=== PATIENT | female | born 1985 | race Caucasian/White ===

== ENCOUNTER 2019-09-22 08:29 | Emergency (ER) | payer BC, SELFPAY ==
[2019-09-22] MEDS ORDERED: ALBUTEROL 2.5 MG/3 ML NEB SOL ONE (09:06)
[2019-09-22] MEDS ORDERED: IPRATROPIUM BROM 0.5MG/2.5ML ONE (09:06)
[2019-09-22] MEDS ORDERED: predniSONE 20 MG TAB ONE (09:06)
[2019-09-22] MEDS ORDERED: BENZONATATE 100 MG CAP PO ONE (10:32)
--- NOTE | 2019-09-22 10:46 | RAD REPORT ---
EXAM DESCRIPTION: RAD - Chest Pa And Lat (2 Views) - 09/22/2019 10:05 am CLINICAL HISTORY: Cough;SOB Chest pain. COMPARISON: <Comparisons> FINDINGS: The lungs are clear. The heart is normal in size. No displaced fractures. IMPRESSION: No acute or concerning finding suspected.
--- NOTE | 2019-09-22 10:56 | EDPHYS ---
Physician Documentation [facility] Name: Jennifer Hutson Age: 34 yrs Sex: Female : 1985 Arrival Date: 09/22/2019 Time: 08:30 Bed 16 Private MD: ED Physician Maninder Mora HPI: 09/22 10:05 This 34 yrs old Female presents to ER via Ambulatory with complaints of Chest pm1 Pressure, Shortness Of Breath, Sore Throat, Headache. 10:05 The patient or guardian reports cough, with productive sputum, that is yellow. Onset: pm1 The symptoms/episode began/occurred 3 day(s) ago. Severity of symptoms: in the emergency department the symptoms are actually worse. Modifying factors: The symptoms are alleviated by nothing, the symptoms are aggravated by nothing. Associated signs and symptoms: Pertinent positives: chest pain, with cough, with breathing, sore throat, Headache, SOB, Pertinent negatives: fever. The patient has not recently seen a physician. Historical: - Allergies: 08:45 No Known Allergies; aa5 - PMHx: 08:45 Depression; aa5 - PSHx: 08:45 Cholecystectomy; Tubal ligation; aa5 - Immunization history:: Adult Immunizations up to date. - Social history:: Smoking status: Patient uses tobacco products, smokes one-half pack cigarettes per day. - Ebola Screening: : No symptoms or risks identified at this time. ROS: 10:05 Constitutional: Negative for fever, chills, and weight loss, Eyes: Negative for injury, pm1 pain, redness, and discharge. 10:05 Neck: Negative for injury, pain, and swelling. 10:05 Abdomen/GI: Negative for abdominal pain, nausea, vomiting, diarrhea, and constipation, Back: Negative for injury and pain, : Negative for injury, bleeding, discharge, and swelling, MS/Extremity: Negative for injury and deformity, Skin: Negative for injury, rash, and discoloration, Neuro: Negative for headache, weakness, numbness, tingling, and seizure. 10:05 ENT: Positive for sore throat, Negative for drainage from ear(s), ear pain, difficulty swallowing, difficulty handling secretions, hoarseness. 10:05 Cardiovascular: Positive for chest pain, with cough, Negative for edema, orthopnea, palpitations. 10:05 Respiratory: Positive for cough, with yellow sputum, shortness of breath, wheezing. Exam: 10:05 Constitutional: This is a well developed, well nourished patient who is awake, alert, pm1 and in no acute distress. Head/Face: Normocephalic, atraumatic. 10:05 Neck: Trachea midline, no thyromegaly or masses palpated, and no cervical lymphadenopathy. Supple, full range of motion without nuchal rigidity, or vertebral point tenderness. No Meningismus. Chest/axilla: Normal chest wall appearance and motion. Nontender with no deformity. No lesions are appreciated. Cardiovascular: Regular rate and rhythm with a normal S1 and S2. No gallops, murmurs, or rubs. Normal PMI, no JVD. No pulse deficits. 10:05 Abdomen/GI: Soft, non-tender, with normal bowel sounds. No distension or tympany. No guarding or rebound. No evidence of tenderness throughout. Back: No spinal tenderness. No costovertebral tenderness. Full range of motion. Skin: Warm, dry with normal turgor. Normal color with no rashes, no lesions, and no evidence of cellulitis. MS/ Extremity: Pulses equal, no cyanosis. Neurovascular intact. Full, normal range of motion. 10:05 ENT: External ear(s): are unremarkable, Ear canal(s): are normal, TM's: are normal, Nose: is normal, Mouth: is normal, Posterior pharynx: Airway: normal, no evidence of obstruction, patent, Tonsils: bilaterally enlarged, with erythema, no exudate, no ulcerations, peritonsillar mass, is not appreciated, pooling of secretions, is not appreciated. 10:05 Respiratory: the patient does not display signs of respiratory distress, Respirations: normal, Breath sounds: wheezing: expiratory is heard diffusely. 10:05 Neuro: Orientation: is normal, Motor: is normal, moves all fours, Sensation: is normal, no obvious gross deficits. Vital Signs: 08:30 Weight 113.4 kg; Height 5 ft. 7 in. (170.18 cm); Pain 8/10; ss 08:45 BP 121 / 87; Pulse 100; Resp 18 S; Temp 98.0(O); Pulse Ox 97% on R/A; aa5 09:46 Temp 98.2(O); aa5 09:47 BP 118 / 74; Pulse 118; Resp 20 S; Pulse Ox 97% on R/A; aa5 11:00 BP 138 / 80; Pulse 105; Resp 18 S; Temp 98.2(O); Pulse Ox 98% on R/A; aa5 08:30 Body Mass Index 39.16 (113.40 kg, 170.18 cm) ss MDM: 08:38 Patient medically screened. pm1 10:55 Data reviewed: vital signs. Data interpreted: Pulse oximetry: on room air is 97 %. pm1 Interpretation: normal. Counseling: I had a detailed discussion with the patient and/or guardian regarding: the historical points, exam findings, and any diagnostic results supporting the discharge/admit diagnosis, lab results, radiology results, the need for outpatient follow up, to return to the emergency department if symptoms worsen or persist or if there are any questions or concerns that arise at home. 12 09:04 Order name: Flu; Complete Time: 10:26 pm1 09/22 09:04 Order name: Strep; Complete Time: 10:26 pm1 12 09:04 Order name: Chest Pa And Lat (2 Views) XRAY; Complete Time: 10:53 pm1 Administered Medications: 09:08 Drug: Albuterol - atroVENT (3:1) (2.5 mg - 0.5 mg) 3 ml Route: Nebulizer; aa5 09:30 Follow up: Response: No adverse reaction aa5 09:08 Drug: predniSONE 60 mg Route: PO; aa5 09:30 Follow up: Response: No adverse reaction aa5 10:33 Drug: Tessalon Perle 200 mg Route: PO; aa5 11:00 Follow up: Response: No adverse reaction aa5 Disposition: 14:10 Co-signature as Attending Physician, Maninder Mora MD. rn Disposition: 09/22/19 10:56 Discharged to Home. Impression: Streptococcal pharyngitis. - Condition is Stable. - Discharge Instructions: Strep Throat. - Prescriptions for Amoxicillin 500 mg Oral Capsule - take 1 capsule by ORAL route every 8 hours for 10 days; 30 tablet. Medrol (Harry) 4 mg Oral Tablets, Dose Pack - take 1 tablet by ORAL route as directed - follow package instructions; 1 packet. Guaifenesin AC 10- 100 mg/5 mL Oral Liquid - take 10 milliliter by ORAL route every 4 hours As needed; 240 milliliter. - Medication Reconciliation Form, Thank You Letter, Antibiotic Education, Prescription Opioid Use form. - Follow up: Emergency Department; When: As needed; Reason: Worsening of condition. Follow up: Private Physician; When: 2 - 3 days; Reason: Recheck today's complaints, Continuance of care, Re-evaluation by your physician. - Problem is new. - Symptoms have improved. Signatures: Dispatcher [employer] EDMS Maninder Mora MD MD rn Calderon, Audri RN RN aa5 Parul Maynard RN RN ss Martinez Epstein, PARKING ATTENDANT PARKING ATTENDANT pm1 Lorrie Stephens RN RN vc Corrections: (The following items were deleted from the chart) 11:06 10:56 09/22/2019 10:56 Discharged to Home. Impression: Streptococcal pharyngitis. vc Condition is Stable. Forms are Medication Reconciliation Form, Thank You Letter, Antibiotic Education, Prescription Opioid Use. Follow up: Emergency Department; When: As needed; Reason: Worsening of condition. Follow up: Private Physician; When: 2 - 3 days; Reason: Recheck today's complaints, Continuance of care, Re-evaluation by your physician. Problem is new. Symptoms have improved. pm1
--- NOTE | 2019-09-22 10:56 | ER ---
Nurse's Notes [facility] Name: Jennifer Hutson Age: 34 yrs Sex: Female : 1985 Arrival Date: 09/22/2019 Time: 08:30 Bed 16 Private MD: Diagnosis: Streptococcal pharyngitis Presentation: 09/22 08:45 Presenting complaint: Patient states: cough and congestion x 2-3 days ago. Pt c/o chest aa5 pressure with inspiration and SOB. 08:45 Transition of care: patient was not received from another setting of care. Onset of aa5 symptoms was September 2019. Risk Assessment: Do you want to hurt yourself or someone else? Patient reports no desire to harm self or others. Care prior to arrival: None. 08:45 Acuity: MONIQUE 3 aa5 08:45 Method Of Arrival: Ambulatory aa5 08:45 Initial Sepsis Screen: Does the patient meet any 2 criteria? HR > 90 bpm. Does the aa5 patient have a suspected source of infection? Yes:. Historical: - Allergies: 08:45 No Known Allergies; aa5 - PMHx: 08:45 Depression; aa5 - PSHx: 08:45 Cholecystectomy; Tubal ligation; aa5 - Immunization history:: Adult Immunizations up to date. - Social history:: Smoking status: Patient uses tobacco products, smokes one-half pack cigarettes per day. - Ebola Screening: : No symptoms or risks identified at this time. Screenin:00 Abuse screen: Denies threats or abuse. Nutritional screening: No deficits noted. aa5 Tuberculosis screening: No symptoms or risk factors identified. Fall Risk None identified. Assessment: 08:45 General: Appears uncomfortable, Behavior is calm, cooperative. Pain: Complains of pain aa5 in mid-sternal area Pain does not radiate. Pain currently is 0 out of 10 on a pain scale. Quality of pain is described as pressure, Pain began 2-3 days ago. Is intermittent, Aggravated by Pt reports chest pressure only with inspiration. Neuro: Level of Consciousness is awake, alert, obeys commands, Oriented to person, place, time, situation. Cardiovascular: Heart tones S1 S2 present Rhythm is regular. Respiratory: Reports shortness of breath cough that is dry, Airway is patent Respiratory effort is even, unlabored, Respiratory pattern is regular, symmetrical, Breath sounds with wheezes bilaterally. GI: Abdomen is round non-distended, Bowel sounds present X 4 quads. Abd is soft and non tender X 4 quads. Patient currently denies nausea, vomiting. : No signs and/or symptoms were reported regarding the genitourinary system. EENT: Reports nasal congestion nasal discharge that is green that is yellow Hoarse voice noted, reports sore throat . Derm: Skin is pink, warm \T\ dry. Musculoskeletal: Range of motion: intact in all extremities. 09:30 Reassessment: Patient is alert, oriented x 3, equal unlabored respirations, skin aa5 warm/dry/pink. Awaiting chest x-ray . 11:00 Reassessment: Patient is alert, oriented x 3, equal unlabored respirations, skin aa5 warm/dry/pink. General: Appears comfortable. Respiratory: Wheezing diminished. Vital Signs: 08:30 Weight 113.4 kg; Height 5 ft. 7 in. (170.18 cm); Pain 8/10; ss 08:45 BP 121 / 87; Pulse 100; Resp 18 S; Temp 98.0(O); Pulse Ox 97% on R/A; aa5 09:46 Temp 98.2(O); aa5 09:47 BP 118 / 74; Pulse 118; Resp 20 S; Pulse Ox 97% on R/A; aa5 11:00 BP 138 / 80; Pulse 105; Resp 18 S; Temp 98.2(O); Pulse Ox 98% on R/A; aa5 08:30 Body Mass Index 39.16 (113.40 kg, 170.18 cm) ED Course: 08:30 Patient arrived in ED. as 08:38 Martinez Epstein NP is PHCP. pm1 08:38 Maninder Mora MD is Attending Physician. pm1 08:45 Arm band placed on. aa5 08:45 Patient has correct armband on for positive identification. Bed in low position. Call aa5 light in reach. Side rails up X 1. 08:45 Pulse ox on. NIBP on. aa5 08:52 Naya Morel, RN is Primary Nurse. aa5 09:00 No provider procedures requiring assistance completed. Patient maintains SpO2 aa5 saturation greater than 95% on room air. 09:21 Triage completed. aa5 10:03 Chest Pa And Lat (2 Views) XRAY In Process Unspecified. EDMS 11:02 Patient did not have IV access during this emergency room visit. aa5 Administered Medications: 09:08 Drug: Albuterol - atroVENT (3:1) (2.5 mg - 0.5 mg) 3 ml Route: Nebulizer; aa5 09:30 Follow up: Response: No adverse reaction aa5 09:08 Drug: predniSONE 60 mg Route: PO; aa5 09:30 Follow up: Response: No adverse reaction aa5 10:33 Drug: Tessalon Perle 200 mg Route: PO; aa5 11:00 Follow up: Response: No adverse reaction aa5 Outcome: 10:56 Discharge ordered by . pm1 11:02 Discharged to home ambulatory. aa5 11:02 Condition: stable 11:02 Discharge instructions given to patient, Instructed on discharge instructions, follow up and referral plans. medication usage, Demonstrated understanding of instructions, follow-up care, medications, Prescriptions given X 3. 11:03 Patient left the ED. aa5 Signatures: Dispatcher [employer] [facility] Lroe Schaffer Audri, RN RN aa5 Parul Maynard RN RN ss Martinez Epstein, POWER PRESS SUPERVISOR POWER PRESS SUPERVISOR pm1 Lorrie Stephens RN RN vc Corrections: (The following items were deleted from the chart) 09:46 08:45 BP 121 / 87; Pulse 100bpm; Resp 18bpm; Spontaneous; Pulse Ox 97% RA; aa5 aa5 09:51 08:45 Initial Sepsis Screen: Does the patient meet any 2 criteria? HR > 90 bpm. Does aa5 the patient have a suspected source of infection? No. Patient's initial sepsis screen is negative. aa5 11:45 11:06 Patient left the ED. vc aa5 11:49 09:47 BP 118 / 74; Pulse 118bpm; Resp 20bpm; Spontaneous; aa5 aa5
[2019-09-22 11:18] VITALS: O2SAT 97
[2019-09-22 11:19] VITALS: TEMP 98.2
[2019-09-22 11:21] VITALS: BP 118/74
== END 2019-09-22 11:06 | disposition home or self-care (01) ==
LOC: ER 08:29
DX: J02.0 Streptococcal pharyngitis (principal); F17.210 Nicotine dependence, cigarettes, uncomplicated
CPT/HCPCS: 71046; 87081; 87804; 94640; 99285; J7512